=== PATIENT | female | born 1960 | race Caucasian/White ===

== ENCOUNTER → 2024-09-17 | Outpatient (CLI) | payer BC, SELFPAY ==
[2024-09-17 10:29] LABS: Basophils # (Auto) 0.1 Thou/mm3 (0.0-0.2); Basophils % (Auto) 1 % (0-2.5); Eosinophils # (Auto) 0.3 Thou/mm3 (0.0-0.5); Eosinophils % (Auto) 5 % (0-10); Hematocrit 35.8 % (36.0-46.0); Hemoglobin 11.6 g/dL (12.0-16.0); Immature Granulocytes % (Auto) 0 % (0-0); Immature Granulocytes Auto 0.01 Thou/mm3 (0.00-0.00); Lymphocytes # (Auto) 2.3 Thou/mm3 (1.0-4.8); Lymphocytes % (Auto) 38 % (10-50); Mean Corpuscular HGB Conc 32.4 g/dl (31.0-37.0); Mean Corpuscular Hemoglobin 26.3 pg (25.0-35.0); Mean Corpuscular Volume 81 fL (80-100); Monocytes # (Auto) 0.4 Thou/mm3 (0.0-0.8); Monocytes % (Auto) 6 % (0-12); Neutrophils % (Auto) 50 % (37-80); Nucleated Red Blood Cell % 0 /100 WBC (0); Platelet Count 251 Thou/mm3 (140-440); RDW Standard Deviation 47.6 fL (36.4-46.3); Red Blood Count 4.41 Miln/mm3 (4.00-5.20)
[2024-09-17 10:40] LABS: Glucose Estimated Average 148 mg/dL (80-131); Hemoglobin A1C 6.8 % Hgb (4.8-6.0)
[2024-09-17 10:52] LABS: Creatinine MALB Rnd Ur 202 mg/dL (30-125); Microalbumin Creat Ratio 5 mg/gCrea (<30); Microalbumin, Random Urine 10 mg/L (0-300)
[2024-09-17 11:01] LABS: Alanine Aminotransferase < 7 U/L (10-49); Albumin, Serum 4.3 gm/dL (3.4-4.8); Albumin/Globulin Ratio 1.9 (1.2-2.2); Alkaline Phosphatase 68 U/L (46-116); Anion Gap 10 (7-16); Aspartate Amino Transferase 13 U/L (0-34); BUN/Creatinine Ratio 10 Ratio (12-20); Bilirubin,Total 1.2 mg/dL (0.3-1.2); Blood Urea Nitrogen 8 mg/dL (9-23); Calcium 8.8 mg/dL (8.3-10.6); Calcium (Corrected) 8.8 mg/dL (8.5-10.1); Carbon Dioxide 27.3 mMol/L (20.0-31.0); Cardiac Risk Estimate 2.8 RATIO (3.7-5.6); Chloride 106 mMol/L (98-107); Cholesterol 138 mg/dL (132-200); Creatinine (Component) 0.8 mg/dL (0.6-1.3); Globulin 2.3 gm/dL (2.3-3.5); Glucose 124 mg/dL (74-106); HDL Cholesterol 49 mg/dL (40-60); LDL Cholesterol,Calculated 53 mg/dL (0-130); Osmolality,Calculated 284 (275-295); Potassium 4.2 mMol/L (3.4-5.1); Sodium 143 mMol/L (136-145); Thyroid Stimulating Hormone 3.05 uIU/mL (0.55-4.78); Total Protein 6.6 gm/dL (5.7-8.2); Triglycerides 178 mg/dL (30-150); eGFR > 60 See Note
== END | disposition home or self-care (01) ==
PROVIDERS: PCP Internal Medicine; Referring Provider Internal Medicine; Visit Provider Internal Medicine
DX: E11.65 Type 2 diabetes mellitus with hyperglycemia (principal); K21.9 Gastro-esophageal reflux disease without esophagitis; F41.9 Anxiety disorder, unspecified; E78.00 Pure hypercholesterolemia, unspecified; E66.09 Other obesity due to excess calories
CPT/HCPCS: 36415; 80053; 80061; 82043; 82570; 83036; 84443; 85025

== ENCOUNTER → 2024-11-12 | Outpatient (CLI) | payer MEDICARE, BC, SELFPAY ==
--- NOTE | 2024-11-12 07:30 | XR_ITS ---
Examination: CT abdomen without intravenous contrast. Coronal 2-D reconstructions. Sagittal 2-D reconstructions. Date and time of exam:November 12, 2024, 0728 hours Comparison November 13, 2008. INDICATIONS: Generalized abdominal pain 1 year CTDI: vol (mGy): 11.5 DLP: (mGycm): 449 Technique: Axial images of the abdomen have been obtained, 3 mm slice thickness, without intravenous contrast 2-D sagittal coronal reconstructions Low dose protocols were performed. One or more of the following dose reduction techniques were used; automated exposure control, adjustment of the mA and/or KV according to patient size, use of iterative reconstruction technique. Findings: 4 mm cavitary nodule left lower lobe image 25 Gastric sutures. Fatty infiltration throughout the liver. Fatty replacement involving the pancreas. Spleen is not enlarged. No adrenal mass. No renal or ureteral calculi, no hydronephrosis. Aorta normal size. No bowel obstruction Normal appendix Moderate disc narrowing L5-S1 IMPRESSION: 4 mm cavitary nodule left lower lobe, consider CT chest without intravenous contrast follow-up Fatty infiltration throughout the liver Fatty replacement involving the pancreas No renal or ureteral calculi, no hydronephrosis Normal appendix
== END | disposition home or self-care (01) ==
LOC: CCTX 07:02
PROVIDERS: PCP Internal Medicine; Referring Provider Internal Medicine; Visit Provider Internal Medicine
DX: R91.1 Solitary pulmonary nodule (principal); K76.0 Fatty (change of) liver, not elsewhere classified
CPT/HCPCS: 74150

== ENCOUNTER → 2024-12-25 | Outpatient (CLI) | payer MEDICARE, BC, SELFPAY ==
--- NOTE | 2024-12-25 16:00 | XR_ITS ---
Examination: CT chest, without intravenous contrast. Sagittal and coronal 2-D reconstructions. Exam date and time: December 25, 2024 1631 hours INDICATIONS: CT abdomen November 12, 2024 4 mm cavitary lesion left lower lobe CTDI:vol (mGy) 16.7 DLP: (mGycm) 565 Technique: Multiple 3.0 mm axial sections of the chest to been obtained. Bone and lung density settings are obtained. Sagittal and coronal 2-D reconstructions have been obtained. Low dose protocols were performed. One or more of the following dose reduction techniques were used; automated exposure control, adjustment of the mA and/or KV according to patient size, use of iterative reconstruction technique. Findings: No thoracic aortic aneurysm dilatation Pulmonary artery segments are not enlarged Moderate calcification left anterior descending coronary artery No paratracheal tracheobronchial or bronchopulmonary adenopathy 4 mm pulmonary nodule right lower lobe image 109 4 mm cavitary nodule left lower lobe image 169 No pneumonia or pulmonary edema no pleural disease Gastric sutures Fatty replacement of the pancreas Spleen not enlarged No hydronephrosis Prominent osteopenia with moderate thoracic spondylosis IMPRESSION: Subcentimeter pulmonary nodules as above, recommend 6 month follow-up CT chest without contrast
== END | disposition home or self-care (01) ==
LOC: SCAT 15:37
PROVIDERS: PCP Internal Medicine; Referring Provider Internal Medicine; Visit Provider Internal Medicine
DX: R91.8 Other nonspecific abnormal finding of lung field (principal)
CPT/HCPCS: 71250